=== PATIENT | female | born 1955 | race Caucasian/White ===

== ENCOUNTER 2022-07-20 14:52 | Emergency (ER) | payer MEDICARE, OTHER ==
[~2022-07-20] VITALS: Ht 157.5 cm; Wt 76.7 kg
[~2022-07-20 14:52] MED LIST: ALEN70TA80 PO; AMLO-212 PO; ATOR40TA PO; DEXL60CA3 PO; EZET10TA16 PO; FERR325T24 PO; HYDR25TA4 PO; METO25TA6 PO; NAPR-1192 PO; OLOP2.5D12 EACHEYE; SITA1TAB6 PO; VALS80TA31 PO; [UNRECOGNIZED DRUG - CODE] PO
--- NOTE | 2022-07-20 15:10 | NUR ---
BIB [id number] WAS AT [place] AND A BAKSET FELL ON TOP OF HER HEAD. C/O DIZZINESS, ATTACHED TO MONITOR. WARM BLANKET PROVIDED FOR COMFORT. AWAITING MD JOHNSON.
[2022-07-20] MEDS ORDERED: ACETAMINOPHEN ES 500 MG TABLET PO ONE (16:30)
[2022-07-20] MEDS ORDERED: ACETAMINOPHEN ES 500 MG TABLET ONE (16:33)
[2022-07-20] MEDS ORDERED: CYCL10TA9 PO (17:08)
--- NOTE | 2022-07-20 17:20 | NUR ---
IV removed. Catheter intact and site benign. Pressure and 4x4 applied to site. No bleeding noted.Patient discharged to home in stable condition. Written and verbal after care instructions given. Patient verbalizes understanding of instruction.
[2022-07-20 17:21] VITALS: BP 156/84
[2022-07-20] MEDS ORDERED: CYCLOBENZAPRINE 10 MG TABLET PO ONE (17:30)
== END 2022-07-20 17:21 | disposition home or self-care (01) ==
LOC: ER 15:03
DX: S09.8XXA Other specified injuries of head, initial encounter (principal); I10 Essential (primary) hypertension; E78.00 Pure hypercholesterolemia, unspecified; E11.9 Type 2 diabetes mellitus without complications; F17.200 Nicotine dependence, unspecified, uncomplicated; Z79.899 Other long term (current) drug therapy; W20.8XXA Other cause of strike by thrown, projected or falling object, initial encounter; Y93.89 Activity, other specified; Y92.512 Supermarket, store or market as the place of occurrence of the external cause; Y99.8 Other external cause status
CPT/HCPCS: 70450-TC; 72125-TC